=== PATIENT | male | born 1980 | race Caucasian/White ===

== ENCOUNTER 2020-08-10 11:14 | Emergency (ER) | payer OTHER ==
[~2020-08-10] VITALS: Ht 175.3 cm; Wt 80.7 kg
[2020-08-10 11:18] VITALS: BP 147/81
--- NOTE | 2020-08-10 11:33 | NUR ---
39 Y/O MALE BIBA FROM [employer] [facility] C/O SOB/ NASUE[place], PATIENT STATES "I JUST DONT FEEL GOOD". NO RESP DISTRESS AT THIS TIME. VSS. AAOX4. NO PMH ALLERGIES : HALDOL
--- NOTE | 2020-08-10 11:41 | NUR ---
PT UNABLE TO PROVIDE URINE AT THIS TIME
[2020-08-10 11:44] LABS: BASOPHILS # (AUTO) 0.1 K/uL (0.00-0.22); BASOPHILS % (AUTO) 0.5 % (0.0-2.0); EOSINOPHILS % (AUTO) 0.1 % (0.0-4.0); HEMATOCRIT 42.1 % (36-52); LYMPHOCYTES # (AUTO) 1.9 K/uL (2.0-11.5); LYMPHOCYTES % (AUTO) 18.6 % (20.5-51.1); MEAN CORPUSCULAR HEMOGLOBIN 29 pg (27-31); MEAN CORPUSCULAR HGB CONC 33 g/dL (33-37); MONOCYTES % (AUTO) 10.1 % (1.7-9.3); NEUTROPHILS # (AUTO) 7.1 K/uL (1.8-7.7); NEUTROPHILS % (AUTO) 70.7 % (42.2-75.2); PLATELET COUNT (AUTO) 308 K/uL (140-450); RED CELL DISTRIBUTION WIDTH 14.8 % (11.6-13.7); WHITE BLOOD COUNT (AUTO) 10.1 K/uL (4.8-10.8)
[2020-08-10 12:10] LABS: ACETAMINOPHEN < 0.5 ug/ml (10-30); ALBUMIN 4.6 g/dL (3.4-5.0); ANION GAP 11.9 (8-16); ASPARTATE AMINOTRANSFERASE 91 U/L (15-37); CARBON DIOXIDE 31.8 mmol/L (21-32); CHLORIDE 98 mmol/L (98-107); CREATININE 1.2 mg/dL (0.6-1.3); GFR ARICAN-AMERICAN 87 mL/min (>90); GLUCOSE 94 mg/dL (74-106); POTASSIUM 4.7 mmol/L (3.5-5.1); SALICYLATE < 2.8 mg/dL (2.8-20.0); SODIUM SERUM 137 mmol/L (136-145); TOTAL BILIRUBIN 0.7 mg/dL (0.0-1.0); UREA NITROGEN, BLOOD 20 mg/dL (7-18)
--- NOTE | 2020-08-10 13:06 | NUR ---
PATIENT PROVIDED UA, GIVEN TO US ADMINISTRATIVE LAW JUDGE.
--- NOTE | 2020-08-10 13:30 | NUR ---
TELE MD SPEAKING WITH PT
--- NOTE | 2020-08-10 13:57 | NUR ---
TELE ASSESSING PT AT THIS TIME
[2020-08-10 14:12] LABS: ACETAMINOPHEN < 0.5 ug/ml (10-30); SALICYLATE < 2.8 mg/dL (2.8-20.0)
[2020-08-10 14:14] LABS: BARBITURATE, URINE NEGATIVE ng/ml (NEG <=200); BENZODIAZEPINE, URINE POSITIVE ng/mL (NEG <=200); CANNABINOID, URINE POSITIVE ng/mL (NEG <=50); COCAINE, URINE NEGATIVE ng/mL (NEG <=300); OPIATE, URINE NEGATIVE ng/mL (NEG <=2000); PHENCYCLIDINE SCREEN,URINE NEGATIVE ng/mL (NEG <=25)
[2020-08-10] MEDS ORDERED: FLUO40CA6 PO (17:47)
--- NOTE | 2020-08-10 19:30 | NUR ---
Received report from Laura BLACKWOOD for continuity of care.
--- NOTE | 2020-08-10 20:19 | NUR ---
PT SITTING IN [facility] IN NO ACUTE DISTRESS NOTED, RESPIRATIONS ARE EVEN AND UNLABORED EVIDENCE BY RISE AND FALL OF CHEST WALL. VSS, ON 1:1 MONITORING FOR DTS SI/HI. WILDLIFE PROTECTOR AT ARMS LENGTH FOR THE SAFETY OF SELF AND OTHERS. DENIES HAVING ANY THOUGHTS OF HARMING SELF OR OTHERS. DENIES HAVING ANY AH/VH. WILL CONT TO MONITOR. ALL SUICIDE PRECAUTIONS IN PLACE.
--- NOTE | 2020-08-10 22:51 | NUR ---
PT SITTING IN [facility] ED HALLWAY, IN NO ACUTE DISTRESS NOTED. VSS, AT ARMS LENGTH AND WITHIN SIGHT. 1:1 MONITORING FOR DTS. WILL CONT TO MONITOR. ALL SUICIDE PRECAUTIONS IN PLACE PT DENIES HAVING ANY THOUGHTS OF HARMING SELF OR OTHERS.
--- NOTE | 2020-08-10 22:57 | NUR ---
PT AMBULATED TO THE BATHROOM WITH STEADY GAIT. ALL PRECAUTIONS IN PLACE.
[2020-08-11] MEDS ORDERED: IBUPROFEN 600 MG TAB PO STA (00:43)
--- NOTE | 2020-08-11 00:43 | NUR ---
PT C/O 11/11 "ACHING" BACK PAIN. ER MD DR. RENNER GAVE NEW ORDERS FOR MOTRIN 600MG.
--- NOTE | 2020-08-11 01:45 | NUR ---
PT VERBALIZES A DECREASE IN PAIN LEVEL FROM 4/10 TO 0/10.
--- NOTE | 2020-08-11 02:03 | NUR ---
Faxed packet to the following facilities [facility] [employer]
--- NOTE | 2020-08-11 02:26 | NUR ---
PT AMBULATED TO THE BATHROOM WITH STEADY GAIT. ALL PRECAUTIONS IN PLACE.
--- NOTE | 2020-08-11 03:00 | NUR ---
PT WAS GIVEN SNACK PER REQUEST.
--- NOTE | 2020-08-11 04:36 | NUR ---
PT PACING IN ED HALLWAY, IN NO ACUTE DISTRESS NOTED. VSS, AT ARMS LENGTH AND WITHIN SIGHT. 1:1 MONITORING FOR DTS. WILL CONT TO MONITOR. ALL SUICIDE PRECAUTIONS IN PLACE PT DENIES HAVING ANY THOUGHTS OF HARMING SELF OR OTHERS. PT WAS OBSERVED TALKING TO SELF BUT DENIED HAVING ANY AUDITORY HALLUCINATIONS OR VISUAL HALLUCINATIONS.
--- NOTE | 2020-08-11 05:00 | NUR ---
PT AMBULATED TO THE BATHROOM WITH STEADY GAIT STAFF AT ARMS LENGTH FOR SAFETY.
[2020-08-11] MEDS ORDERED: ZIPRASIDONE MESYLATE 20 MG/ML VIAL IM ONE ×2 (05:53→06:00)
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
--- NOTE | 2020-08-11 06:20 | NUR ---
pt placed on a bed with 4 point hard restraints.
--- NOTE | 2020-08-11 07:11 | NUR ---
PT REMAINS ON 4 POINT RESTRAINTS, REMAINS HOSTILE, THREATENING STAFF "FUCK YOU GUYS". PT CONTINUES TO BE A DTO. CIRCULATION CHECK BILAT PULSES +2 STRONG. NO VISIBLE SIGNS OF INJURY NOTED ON WRIST OR ANKLES. PT WAS OFFERED FLUIDS REFUSED AT THIS TIME.
--- NOTE | 2020-08-11 07:20 | NUR ---
REPORT GIVEN TO JIM BLACKWOOD FOR CONTINUITY OF CARE.
--- NOTE | 2020-08-11 07:22 | NUR ---
[facility] to continue working on placement, No openings at this time.
[2020-08-11] MEDS ORDERED: LORazepam 1 MG TAB PO ONE (09:30)
--- NOTE | 2020-08-11 10:19 | NUR ---
Packet Refaxed to [facility], [facility], [facility] for potential openings today. Intake to be completed and referrred to [facility] for potential direct Admit to their unit ([facility])
--- NOTE | 2020-08-11 11:47 | NUR ---
Patient accepted to [facility] under Dr Mccormack. Patient will go to bed 122B. Report will be called to [facility]uns[facility] [phone]
--- NOTE | 2020-08-11 12:05 | NUR ---
Report given to [facility] at [facility]. ETA for pickup 1 hr.
[2020-08-11] MEDS ORDERED: FLUoxetine 20 MG CAP PO ONE (12:50)
[2020-08-11 17:01] VITALS: BP 117/86
--- NOTE | 2020-08-11 17:02 | NUR ---
Patient to be transferred to [facility]. Is being transferred due to psych. Receiving facility has accepting physician and available space. ER physician has signed transfer form. Patient or responsible constitution party has agreed to transfer and signed form. Patient belongings inventoried and will be sent with patient. Copy of nursing notes, lab reports, EKG, Physicians Orders and X-rays to be sent with patient. Report called to [facility] at receiving facility. [facility] ambulance service has been called for transfer.
== END 2020-08-11 17:02 ==
LOC: MED 11:14
DX: R45.851 Suicidal ideations (principal); F32.9 Major depressive disorder, single episode, unspecified; Z88.8 Allergy status to other drugs, medicaments and biological substances; Z20.828 Contact with and (suspected) exposure to other viral communicable diseases
CPT/HCPCS: 36415; 80053; 80305; 85025; 87426; 93005; 96372; 99285; G0480; G0482; J3486; U0003

== ENCOUNTER 2022-08-07 18:28 | Emergency (ER) | payer MEDICAID, OTHER ==
[~2022-08-07] VITALS: Ht 177.8 cm; Wt 70.3 kg
[~2022-08-07 18:28] MED LIST: FLUO40CA6 PO
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
--- NOTE | 2022-08-07 19:13 | NUR ---
BRETT Bob evaluating patient in chair E. Addendum: 08/07/22 at 1913 by GHASSAN BRETT Bob evaluating patient in chair B.
[2022-08-07 19:29] VITALS: BP 130/68
[2022-08-07] MEDS ORDERED: BACI-416 TP (19:29)
[2022-08-07] MEDS ORDERED: IBUP-2213 PO (19:29)
--- NOTE | 2022-08-07 19:29 | NUR ---
BP 130/68
--- NOTE | 2022-08-07 19:36 | NUR ---
PATIENT [facility] DEPT. PATIENT EXAMINED BY DR. IRVIN. PATIENT MEDICALLY CLEARED AND RELEASED IN CUSTODY IN STABLE CONDITION. ORIGINAL PRE-BOOK FORM GIVEN TO OFFICER BENNETT, #[id number].
== END 2022-08-07 19:36 | disposition home or self-care (01) ==
LOC: MED 18:28
DX: S86.812A Strain of other muscle(s) and tendon(s) at lower leg level, left leg, initial encounter (principal); S40.811A Abrasion of right upper arm, initial encounter; S70.211A Abrasion, right hip, initial encounter; S00.31XA Abrasion of nose, initial encounter; S00.81XA Abrasion of other part of head, initial encounter; Z88.5 Allergy status to narcotic agent; Z79.899 Other long term (current) drug therapy; X58.XXXA Exposure to other specified factors, initial encounter; Y93.89 Activity, other specified; Y92.89 Other specified places as the place of occurrence of the external cause; Y99.8 Other external cause status
CPT/HCPCS: 99283